=== PATIENT | female | born 1985 | race Caucasian/White ===

== ENCOUNTER 2017-05-19 11:58 | Emergency (ER) | payer BC ==
[2017-05-19 13:22] VITALS: BP 110/70
--- NOTE | 2017-05-19 14:32 | UC ---
Throat Pain/Nasal Jonas HPI - HPI Summary HPI Summary: FIVE DAYS OF COUGH, CONGESTION, HEADACHE, SORETHROAT, RIGHT EAR PAIN. - History of Current Complaint Chief Complaint: UCEar Stated Complaint: EAR COMPLAINT Time Seen by Provider: 05/19/17 14:01 Hx Obtained From: Patient Hx Last Menstrual Period: 04/24/17 Onset/Duration: Gradual Onset, Lasting Days Severity: Moderate Pain Intensity: 0 Pain Scale Used: 0-10 Numeric Cough: Productive Associated Signs & Symptoms: Positive: Hoarseness, Sinus Discomfort, Nasal Discharge - Epiglottits Risk Factors Epiglottis Risk Factors: Negative - Allergies/Home Medications Allergies/Adverse Reactions: Allergies Allergy/AdvReac Type Severity Reaction Status Date / Time Cephalexin [From Keflex] Allergy Intermediate Hives Verified 05/19/17 13:18 Magnesium Sulfate Allergy Intermediate THROAT Verified 05/19/17 13:18 CLOSES Home Medications: Home Medications Lactobacillus [Probiotic] 1 cap PO DAILY 05/19/17 [History Confirmed 05/19/17] PMH/Surg Hx/FS Hx/Imm Hx Previously Healthy: Yes - Surgical History Surgical History: Yes Surgery Procedure, Year, and Place: CSECTION X 3, CHOLECYSTECTOMY - Family History Known Family History: Negative: Respiratory Disease - Social History Occupation: Employed Full-time Lives: With Family Alcohol Use: Occasionally Substance Use Type: None Smoking Status (MU): Never Smoked Tobacco - Immunization History Most Recent Influenza Vaccination: Not the Season Review of Systems Constitutional: Negative Skin: Negative Eyes: Negative ENT: Ear Ache, Nasal Discharge, Sinus Congestion, Sinus Pain/Tenderness Respiratory: Cough Cardiovascular: Negative Gastrointestinal: Negative Genitourinary: Negative Motor: Negative Neurovascular: Negative Musculoskeletal: Negative Neurological: Negative Psychological: Negative Is Patient Immunocompromised?: No All Other Systems Reviewed And Are Negative: Yes Physical Exam Triage Information Reviewed: Yes Appearance: Well-Appearing, No Pain Distress, Well-Nourished Vital Signs: Initial Vital Signs Temp 98.6 F 05/19/17 13:17 Pulse 70 05/19/17 13:17 Resp 16 05/19/17 13:17 BP 110/70 05/19/17 13:17 Pulse Ox 100 05/19/17 13:17 Vital Signs Reviewed: Yes Eye Exam: Normal ENT: Positive: Hearing grossly normal, Nasal congestion, Nasal drainage, TM bulging, TM dull, TM red - RIGHT, Other - RIGHT EAC EDEMA ERYTHEMA Dental Exam: Normal Neck exam: Normal Neck: Positive: Supple, Nontender, No Lymphadenopathy Respiratory Exam: Other - COUGH Respiratory: Positive: Chest non-tender, Lungs clear, Normal breath sounds, No respiratory distress, No accessory muscle use Cardiovascular Exam: Normal Cardiovascular: Positive: RRR, No Murmur, Pulses Normal, Brisk Capillary Refill Abdominal Exam: Normal Musculoskeletal Exam: Normal Musculoskeletal: Positive: Strength Intact, ROM Intact Neurological Exam: Normal Psychological Exam: Normal Skin Exam: Normal Throat Pain/Nasal Course/Dx - Differential Dx/Diagnosis Differential Diagnosis/HQI/PQRI: Pharyngitis, Sinusitis, Tonsillitis, URI Provider Diagnoses: SINUSITIS; RIGHT OTITIS EXTERNA Discharge - Discharge Plan Condition: Stable Disposition: HOME Prescriptions: Azithromycin TAB* [Zithromax TAB (Z-NEDA) 250 mg #6 tabs] 250 mg PO DAILY #6 tab Fluconazole [Diflucan 150 MG (NF)] 150 mg PO ONCE #1 tab Neomyc/Polym/HC 1% OTIC SUSP* [Cortisporin Otic Susp 1%*] 4 drop RIGHT EAR TID # 1 btl Patient Education Materials: Sinusitis (ED), Otitis Externa (ED) Referrals: Michael ZARAGOZA,Hunter Hernández [Primary Care Provider] -
== END 2017-05-19 14:19 | disposition home or self-care (01) ==
LOC: UCCORT 11:58
DX: J32.9 Chronic sinusitis, unspecified (principal); H60.91 Unspecified otitis externa, right ear; Z90.49 Acquired absence of other specified parts of digestive tract; Z88.1 Allergy status to other antibiotic agents
CPT/HCPCS: 99212; G0463

== ENCOUNTER 2017-06-23 09:25 | Emergency (ER) | payer BC ==
[2017-06-23 10:07] VITALS: BP 108/68
--- NOTE | 2017-06-23 10:25 | UC ---
FLU HPI - HPI Summary HPI Summary: Has had a cough for several weeks---nebulizer does not help. past couple of days she has had body aches and fevers, - History of Current Complaint Chief Complaint: UCRespiratory Stated Complaint: COUGH CONGESTION FEVER ACHY Time Seen by Provider: 06/23/17 10:16 Hx Obtained From: Patient Hx Last Menstrual Period: 05/23/17 ?: No Onset/Duration: Gradual Onset, Worse Since - past few days Severity Currently: Mild Severity Initially: Moderate Associated Signs & Symptoms: Positive: Fever, Myalgia, Cough, Sore Throat, Nasal Congestion, Vomiting - Allergy/Home Medications Allergies/Adverse Reactions: Allergies Allergy/AdvReac Type Severity Reaction Status Date / Time Cephalexin [From Keflex] Allergy Intermediate Hives Verified 06/23/17 10:07 Magnesium Sulfate Allergy Intermediate THROAT Verified 06/23/17 10:07 CLOSES Home Medications: Home Medications Norethindrone & Eth Estradiol [Cyclafem 1/35 1-35 mg-Mcg] 2 tab PO SEE INSTRUCTIONS 06/23/17 [History Confirmed 06/23/17] PMH/Surg Hx/FS Hx/Imm Hx Previously Healthy: No - Surgical History Surgical History: Yes Surgery Procedure, Year, and Place: CSECTION X 3, CHOLECYSTECTOMY; D 7C for fibroids 10/26/2016 - Family History Known Family History: Positive: None Negative: Respiratory Disease - Social History Occupation: Employed Full-time Lives: With Family Alcohol Use: Occasionally Substance Use Type: None Smoking Status (MU): Never Smoked Tobacco - Immunization History Most Recent Influenza Vaccination: Not the 2016/2017 Season Review of Systems Constitutional: Negative, Fever, Chills, Fatigue Skin: Negative Eyes: Negative ENT: Negative Respiratory: Cough Cardiovascular: Negative Gastrointestinal: Negative Genitourinary: Negative Motor: Negative Neurovascular: Negative Musculoskeletal: Myalgia Neurological: Headache Psychological: Negative Is Patient Immunocompromised?: No All Other Systems Reviewed And Are Negative: Yes Physical Exam Triage Information Reviewed: Yes Appearance: Well-Appearing, No Pain Distress, Well-Nourished Vital Signs: Initial Vital Signs Temp 99.6 F 06/23/17 09:58 Pulse 88 06/23/17 09:58 Resp 18 06/23/17 09:58 BP 108/68 06/23/17 09:58 Pulse Ox 99 06/23/17 09:58 Vital Signs Reviewed: Yes Eye Exam: Normal Eyes: Positive: Conjunctiva Clear ENT Exam: Normal ENT: Positive: Normal ENT inspection, Hearing grossly normal, Pharynx normal, Nasal congestion, Nasal drainage, TM dull. Negative: Tonsillar swelling, Tonsillar exudate Dental Exam: Normal Neck exam: Normal Neck: Positive: Supple, Nontender, No Lymphadenopathy Respiratory Exam: Normal Respiratory: Positive: Chest non-tender, Lungs clear, Normal breath sounds - wheeze left lower lobe, No respiratory distress, No accessory muscle use, Wheezing Cardiovascular Exam: Normal Cardiovascular: Positive: RRR, No Murmur, Pulses Normal, Brisk Capillary Refill Abdominal Exam: Normal Musculoskeletal Exam: Normal Musculoskeletal: Positive: Strength Intact, ROM Intact, No Edema Neurological Exam: Normal Neurological: Positive: Alert, Muscle Tone Normal, Fatigued Psychological Exam: Normal Skin Exam: Normal Diagnostics - Laboratory Diagnostic Studies Completed/Ordered: Influenza A/B (-) Flu Course/Dx - Course Course Of Treatment: Zithromax, Albuterol, prednisone, increase fluids follow with pcp prn - Differential Dx/Diagnosis Provider Diagnoses: Bronchitis with bronchospasm Discharge - Discharge Plan Condition: Stable Disposition: HOME Prescriptions: Azithromycin TAB* [Zithromax TAB (Z-NEDA) 250 mg #6 tabs] 2 tab PO .TODAY, THEN 1 DAILY #1 neda predniSONE TAB* [Deltasone TAB*] 20 mg PO DAILY #15 tab Patient Education Materials: Acute Bronchitis (ED), Bronchospasm (ED) Referrals: Michael ZARAGOZA,Hunter Hernández [Primary Care Provider] - If Needed
== END 2017-06-23 11:30 | disposition home or self-care (01) ==
LOC: UCCORT 09:25
DX: J98.01 Acute bronchospasm (principal); J40 Bronchitis, not specified as acute or chronic; Z88.1 Allergy status to other antibiotic agents; Z88.8 Allergy status to other drugs, medicaments and biological substances
CPT/HCPCS: 87502; 99212; G0463